=== PATIENT | female | born 1945 | race Asian ===

== ENCOUNTER 2016-10-22 10:58 | Inpatient (IN) | payer OTHER ==
[~2016-10-22] VITALS: Ht 160 cm; Wt 87.2 kg
[2016-10-22 11:06] VITALS: BP 160/87; PULSE 92; RESP 16; TEMP 97.8; O2SAT 97
[2016-10-22] MEDS ORDERED: LEVO5TAB13 PO (11:19)
[2016-10-22] MEDS ORDERED: LISI-600 PO (11:19)
[2016-10-22] MEDS ORDERED: OLAN5TAB26 PO (11:19)
[2016-10-22] MEDS ORDERED: GLIP-201 PO (11:19)
[2016-10-22] MEDS ORDERED: LORA-258 PO (11:19)
[2016-10-22] MEDS ORDERED: DIVA250T34 PO (11:19)
--- NOTE | 2016-10-22 11:21 | NUR ---
Patient to ER bed 6 to gown for evaluation. Side rails up. Report given to Adriana FAITH.
--- NOTE | 2016-10-22 11:30 | NUR ---
PT STATES MULTI FALLS AND FEELS GENERALLY WEAK. DENIES ANY PAIN OR DISCOMFORT. PT SLIGHTLY PALE
[2016-10-22] MEDS ORDERED: NACL 0.9% 1,000 ML IV SCH (11:57)
--- NOTE | 2016-10-22 12:05 | NUR ---
RESTING QUIELTY IN BED, DENIES ANY PAIN OR CHANGES IN STATUS
[2016-10-22 12:28] LABS: ANION GAP 7 (5-15); CALCIUM 9.1 mg/dL (8.4-11.0); CHLORIDE 104 mmol/L (98-107); CREATININE 0.96 mg/dL (0.55-1.30); GLUCOSE 195 mg/dL (70-99); POTASSIUM 4.2 mmol/L (3.5-5.1); SODIUM SERUM 138 mmol/L (136-145); UREA NITROGEN, BLOOD 15 mg/dL (8-21)
[2016-10-22 12:31] LABS: BASOPHILS % (AUTO) 0.4 % (0.0-2.0); EOSINOPHILS % (AUTO) 0.2 % (0.0-4.0); HEMATOCRIT 38.2 % (36-48); HEMOGLOBIN 13.3 g/dL (12.0-16.0); LYMPHOCYTES # (AUTO) 1.7 K/uL (1.0-5.5); LYMPHOCYTES % (AUTO) 19.9 % (20.5-51.5); MEAN CORPUSCULAR HEMOGLOBIN 32 pg (27-31); MEAN CORPUSCULAR HGB CONC 35 % (32-36); MEAN CORPUSCULAR VOLUME 91 fL (79.0-98.0); MONOCYTES # (AUTO) 0.7 K/uL (0.0-1.0); MONOCYTES % (AUTO) 7.9 % (1.7-9.3); NEUTROPHILS % (AUTO) 71.6 % (40.0-70.0); PLATELET COUNT (AUTO) 155 K/uL (130-430); RED BLOOD CELL COUNT(AUTO) 4.19 MIL/uL (4.2-6.2); RED CELL DISTRIBUTION WIDTH 13.3 % (9.0-15.0); WHITE BLOOD COUNT (AUTO) 8.4 K/uL (4.8-10.8)
[2016-10-22 12:33] LABS: ALANINE AMINOTRANSFERASE 21 U/L (12-78); ALBUMIN 3.6 g/dL (3.4-4.8); ASPARTATE AMINOTRANSFERASE 12 U/L (10-37); TOTAL BILIRUBIN 0.3 mg/dL (0.0-1.0); TOTAL PROTEIN, SERUM 7.3 g/dL (6.4-8.3)
[2016-10-22 12:34] LABS: BILIRUBIN,URINE NEGATIVE (NEGATIVE); BLOOD, URINE NEGATIVE (NEGATIVE); CLARITY/URINE CLEAR (CLEAR); COLOR,URINE YELLOW (YELLOW); GLUCOSE,URINE 2+ (NEGATIVE); KETONES,URINE 1+ (NEGATIVE); LEUKOCYTE ESTERASE ,URINE NEGATIVE (NEGATIVE); NITRITE, URINE NEGATIVE (NEGATIVE); PROTEIN URINE NEGATIVE (NEGATIVE)
[2016-10-22 12:41] LABS: BACTERIA,URINE RARE /HPF (None Seen); RBC,URINE 0-3 /HPF (0-3); WBC,URINE 0-3 /HPF (0-3)
[2016-10-22 12:41] LABS: INR 0.9 (0.8-1.2); PROTHROMBIN TIME 10.1 SECS (9.5-12.5)
--- NOTE | 2016-10-22 12:56 | NUR ---
RESTING QUIELTY. NO CHANGES. AWAITING FUTHER ORDERS
[2016-10-22] MEDS ORDERED: cefTRIAXone 1 GM IVPB PREMIX 50 ML IV ONE (13:30)
--- NOTE | 2016-10-22 14:35 | NUR ---
Patient will be admitted to [facility]. Admitted to TELE unit. Will go to room 103-B. Belongings list completed. Summary report printed. Report will be given at bedside.
--- NOTE | 2016-10-22 15:11 | NUR ---
ADMIT NOTE Received pt from ER to the floor with a diagnosis of s/p fall. Admission process initiated. patient oriented to pain management, safety and call light-teach back done.
--- NOTE | 2016-10-22 16:00 | NUR ---
RN Rounds Patient was received from ER, was assessed and the bed was made for her, her IVF bolus still running, will call the doctor for order and finish her admission, patient denies pain or discomfort
--- NOTE | 2016-10-22 17:28 | NUR ---
CONSULTATION CALLED REASON FOR CONSULT: S/P FALLS WHO WAS NOTIFIED: RUBI CONSULTING DR: LUCA LUNA SPEED OPERATOR NUMBER: [phone]
--- NOTE | 2016-10-22 18:00 | NUR ---
RN Closing note Patient lie in bed, she ate her dinner, patient is trying to remove her close, but she is oriented and cooperative. frequent rounds on the patient to ensure her safety, bed alarm is on, pharmacy was called regarding her IVF from the pharmacy. patient still denies pain and will follow up
[2016-10-22 20:00] VITALS: BP 132/78; PULSE 80; RESP 19; TEMP 98.3; O2SAT 97
--- NOTE | 2016-10-22 20:00 | NUR ---
Initial PM Note Pt was received lying in bed fully awake, alert and oriented x3. No c/o pain or discomfort. Speech is clear and pt is able to make her needs known. VSS. Pt is afebrile. linotyper is showing SR. Fall precautions are in place. Pt was instructed to call for assistance as needed and pt verbalized understanding. Call light is with pt and bed alarm is on. Three side rails are up. Bed is in the lowest and locked positions. IVF is infusing well in Rt wrist. Will continue to monitor pt.
[2016-10-22] MEDS ORDERED: NON-FORMULARY MEDICATION (Levocetirizine Dihydrochloride 1 TAB) PO SCH (21:00)
--- NOTE | 2016-10-22 22:00 | NUR ---
Rounds Pt is resting comfortably in bed. Skin is warm and dry to touch. No signs or symptoms of hypoglycemia or hyperglycemia noted. Call light is with pt and bed alarm is on. IVF is infusing well in Rt wrist.
[2016-10-22] MEDS: OLANZapine 5 MG TABLET PO SCH (22:04)
[2016-10-22] MEDS: DIVALPROEX SODIUM 250 MG TABLET(DEPAKOTE) PO SCH (22:05)
[2016-10-22] MEDS: LORazepam 1 MG TABLET PO SCH (22:05)
[2016-10-22] MEDS: POTASSIUM CHLORIDE 10 MEQ in NACL 0.9% 1,000 ML IV SCH (22:09)
[2016-10-22 23:27] VITALS: BP 146/87; PULSE 78; RESP 18; TEMP 99.4; O2SAT 93
--- NOTE | 2016-10-23 | NUR ---
Rounds Pt is sleeping without any distress noted. Call light is with pt and bed alarm is on.
--- NOTE | 2016-10-23 02:00 | NUR ---
Rounds Pt is sleeping comfortably in bed. Call light is with pt and bed alarm is on.
[2016-10-23 03:52] VITALS: BP 150/88; PULSE 78; RESP 18; TEMP 98.4; O2SAT 93
--- NOTE | 2016-10-23 04:00 | NUR ---
Rounds Pt is sleeping without any distress noted. IVF is infusing well.
[2016-10-23] MEDS: POTASSIUM CHLORIDE 10 MEQ in NACL 0.9% 1,000 ML IV SCH ×3 (05:24→23:30)
--- NOTE | 2016-10-23 06:36 | NUR ---
Closing Note Pt is awake and resting comfortably in bed. No acute distress noted. IVF is infusing well and call light is with pt. All pt's needs were attended to. No fall or injury noted this shift. Accucheck 159 this AM and no Insulin coverage needed. Skin remains warm and dry to touch. Will endorse to day shift nurse.
--- NOTE | 2016-10-23 07:30 | NUR ---
AM ROUNDS RECEIVED PT UP IN BED. AWAKE, ALERT, ORIENTED X3. BREATHING IS EVEN AND UNLABORED ON RA. NO ACUTE DISTRESS. FULL ASSESSMENT COMPLETED. VSS. RD OF CALL LIGHT NOTED. ENCOURAGED PT TO CALL WITH ANY NEEDS.
[2016-10-23 07:38] LABS: ANION GAP 6 (5-15); BASOPHILS % (AUTO) 0.3 % (0.0-2.0); CALCIUM 8.9 mg/dL (8.4-11.0); CHLORIDE 105 mmol/L (98-107); CREATININE 0.74 mg/dL (0.55-1.30); EOSINOPHILS % (AUTO) 0.2 % (0.0-4.0); GLUCOSE 183 mg/dL (70-99); HEMATOCRIT 36.8 % (36-48); HEMOGLOBIN 12.6 g/dL (12.0-16.0); LYMPHOCYTES # (AUTO) 1.3 K/uL (1.0-5.5); LYMPHOCYTES % (AUTO) 20.4 % (20.5-51.5); MEAN CORPUSCULAR HEMOGLOBIN 32 pg (27-31); MEAN CORPUSCULAR HGB CONC 34 % (32-36); MEAN CORPUSCULAR VOLUME 93 fL (79.0-98.0); MONOCYTES # (AUTO) 0.5 K/uL (0.0-1.0); MONOCYTES % (AUTO) 8.2 % (1.7-9.3); NEUTROPHILS # (AUTO) 4.5 K/uL (1.8-7.7); NEUTROPHILS % (AUTO) 70.9 % (40.0-70.0); PLATELET COUNT (AUTO) 133 K/uL (130-430); POTASSIUM 3.8 mmol/L (3.5-5.1); RED BLOOD CELL COUNT(AUTO) 3.98 MIL/uL (4.2-6.2); RED CELL DISTRIBUTION WIDTH 13.2 % (9.0-15.0); SODIUM SERUM 137 mmol/L (136-145); UREA NITROGEN, BLOOD 10 mg/dL (8-21); WHITE BLOOD COUNT (AUTO) 6.3 K/uL (4.8-10.8)
[2016-10-23 08:00] VITALS: BP 144/78; PULSE 66; RESP 16; TEMP 98.1; O2SAT 98
[2016-10-23] MEDS: glipiZIDE XL 5 MG TAB ( GLUCOTROL XL) PO SCH (08:52)
--- NOTE | 2016-10-23 08:52 | NUR ---
Nutrition Update Manuel Scale 18 noted. Pt admitted for fall. Diet: regular BMI: 34 kg/m2 RD to follow per nutrition care standards.
[2016-10-23] MEDS: LISINOPRIL 20 MG TABLET PO SCH (08:53)
[2016-10-23] MEDS: LORATADINE 10 MG TABLET PO SCH (08:53)
[2016-10-23] MEDS: DIVALPROEX SODIUM 250 MG TABLET(DEPAKOTE) PO SCH ×2 (08:53→22:05)
[2016-10-23 11:23] VITALS: BP 147/81; PULSE 81; RESP 19; TEMP 98.8; O2SAT 94
[2016-10-23 15:54] VITALS: BP 147/87; PULSE 94; RESP 19; TEMP 99.1; O2SAT 93
--- NOTE | 2016-10-23 16:00 | NUR ---
Discharge planning Called and spoke with PAIGE Grady @ [facility], , she is requesting Peer to Peer review with Dr Whiting and her Dr Sawant to discuss dc plan or possible transfer in network. I forwarded Dr Sawant's phone # [phone] Whiting.
[2016-10-23] MEDS: ACETAMINOPHEN 325 MG TABLET PO PRN (17:38)
--- NOTE | 2016-10-23 18:53 | NUR ---
CLOSING NOTE PT RESTING IN BED. ALL NEEDS MET.
--- NOTE | 2016-10-23 19:24 | NUR ---
Initial PM Note Pt was received lying in bed fully awake, alert and oriented x3. No c/o pain or discomfort at this time. Speech is clear and pt is able to make her needs known. Skin is warm and dry to touch. No signs or symptoms of hypoglycemia or hyperglycemia noted. manager monitoring is showing SR. Fall precautions are in place. Pt was instructed to call for assistance as needed and pt verbalized understanding. Call light is with pt and bed alarm is on. Three side rails are up. Bed is in the lowest and locked positions. IVF is infusing well in Rt wrist. Will continue to monitor pt.
[2016-10-23 19:30] VITALS: BP 135/71; PULSE 84; RESP 18; TEMP 97.6; O2SAT 94
--- NOTE | 2016-10-23 20:45 | NUR ---
Dr. Johanne Whiting here to make rounds. Informed him we will f/u on Neurology consult .
--- NOTE | 2016-10-23 21:00 | NUR ---
CONSULTATION PAGED REASON FOR CONSULTATION:S/P FALL WAS CONSULT CALLED?Y PERSON WHO WAS NOTIFIED:JUAN CARLOS CONSULTING PHYSICIAN:BENTLEY WILLINGHAM POTATO CHIP PROCESSING SUPERVISOR SPECIALTY:NEURO POTATO CHIP PROCESSING SUPERVISOR PHONE NUMBER:[phone]
[2016-10-23] MEDS: LORazepam 1 MG TABLET PO SCH (22:05)
[2016-10-23] MEDS: OLANZapine 5 MG TABLET PO SCH (22:05)
[2016-10-23] MEDS: INSULIN REGULAR, HUMAN 100 UNITS/ML, 10 ML VIAL (novoLIN R) SUBCUT PRN (22:08)
--- NOTE | 2016-10-23 22:08 | NUR ---
Blood Sugar Accucheck 221 and 2 units Regular Insulin given SQ. Skin remains warm and dry to touch. Pt declined HS snacks.
[2016-10-23 23:43] VITALS: BP 149/85; PULSE 86; RESP 18; TEMP 98.8; O2SAT 95
--- NOTE | 2016-10-24 | NUR ---
Rounds Pt is sleeping without any acute distress noted. IVF is infusing well and fall precautions are in place.
--- NOTE | 2016-10-24 02:00 | NUR ---
Rounds Pt is sleeping without any distress noted. IVF is infusing well. Call light is with pt and bed alarm is on.
--- NOTE | 2016-10-24 04:00 | NUR ---
Rounds Pt is sleeping comfortably in bed without any acute distress noted. Fall precautions are in place.
[2016-10-24 05:14] VITALS: BP 140/84; PULSE 83; RESP 20; TEMP 98.2; O2SAT 94
--- NOTE | 2016-10-24 05:30 | NUR ---
Rounds Pt is resting quietly in bed. No c/o pain or discomfort.
--- NOTE | 2016-10-24 06:52 | NUR ---
Closing Note Pt is awake and resting comfortably in bed. No acute distress noted. IVF is infusing well and call light is with pt. All pt's needs were attended to. No fall or injury noted this shift. Accucheck 164 this AM and no Insulin coverage needed. Skin remains warm and dry to touch. Will endorse to day shift nurse.
--- NOTE | 2016-10-24 07:20 | NUR ---
INITIAL NOTE RECEIVED PATIENT RESTING IN BED FROM CLOTH SECONDS SORTER NURSE, PATIENT IS ALERT AND ORIENTED X 3, PATIENT DOES NOT COMPLAIN OF ANY PAIN OR DISCOMFORT AT THIS TIME, ASSESSMENT COMPLETE, PATIENT HAS IV IN RIGHT WRIST WITH IV FLUIDS RUNNING, NO SIGNS OF INFILTRATION NOTED, EDUCATED PATIENT ON USE OF CALL FABIAN, PATIENT VERBALIZED UNDERSTANDING, CALL FABIAN LEFT NEXT TO PATIENT'S HAND, BED IN LOWEST POSITION, BED ALARM ON, TWO SIDE RAILS UP FOR PATIENT'S SAFETY, WILL CONTINUE TO MONITOR PATIENT.
[2016-10-24 07:27] LABS: BASOPHILS % (AUTO) 0.4 % (0.0-2.0); EOSINOPHILS % (AUTO) 0.5 % (0.0-4.0); HEMATOCRIT 36.6 % (36-48); HEMOGLOBIN 12.5 g/dL (12.0-16.0); LYMPHOCYTES # (AUTO) 1.9 K/uL (1.0-5.5); LYMPHOCYTES % (AUTO) 28.1 % (20.5-51.5); MEAN CORPUSCULAR HEMOGLOBIN 31 pg (27-31); MEAN CORPUSCULAR HGB CONC 34 % (32-36); MEAN CORPUSCULAR VOLUME 92 fL (79.0-98.0); MONOCYTES # (AUTO) 0.6 K/uL (0.0-1.0); MONOCYTES % (AUTO) 8.9 % (1.7-9.3); NEUTROPHILS # (AUTO) 4.2 K/uL (1.8-7.7); NEUTROPHILS % (AUTO) 62.1 % (40.0-70.0); PLATELET COUNT (AUTO) 136 K/uL (130-430); RED BLOOD CELL COUNT(AUTO) 3.99 MIL/uL (4.2-6.2); RED CELL DISTRIBUTION WIDTH 13.2 % (9.0-15.0); WHITE BLOOD COUNT (AUTO) 6.7 K/uL (4.8-10.8)
[2016-10-24 08:03] LABS: ANION GAP 6 (5-15); CALCIUM 8.8 mg/dL (8.4-11.0); CHLORIDE 108 mmol/L (98-107); CREATININE 0.77 mg/dL (0.55-1.30); GLUCOSE 189 mg/dL (70-99); POTASSIUM 4.3 mmol/L (3.5-5.1); SODIUM SERUM 138 mmol/L (136-145); UREA NITROGEN, BLOOD 11 mg/dL (8-21); VALPROIC ACID 55 ug/mL (50-100)
[2016-10-24 08:10] VITALS: BP 154/95; PULSE 66; RESP 19; TEMP 98.6; O2SAT 93
[2016-10-24] MEDS: DIVALPROEX SODIUM 250 MG TABLET(DEPAKOTE) PO SCH (08:40)
[2016-10-24] MEDS: LORATADINE 10 MG TABLET PO SCH (08:40)
[2016-10-24] MEDS: glipiZIDE XL 5 MG TAB ( GLUCOTROL XL) PO SCH (08:40)
[2016-10-24] MEDS: LISINOPRIL 20 MG TABLET PO SCH (08:40)
[2016-10-24] MEDS: ACETAMINOPHEN 325 MG TABLET PO PRN ×2 (08:44→17:27)
--- NOTE | 2016-10-24 08:45 | NUR ---
MEDICATIONS PATIENT RECEIVED MORNING MEDICATIONS, EDUCATED PATIENT ON POTENTIAL SIDE EFFECTS OF MEDICATIONS, PATIENT NODDED HEAD FOR UNDERSTANDING, NO OTHER NEEDS AT THIS TIME, WILL CONTINUE TO MONITOR PATIENT. FALL PRECAUTIONS IN PLACE.
--- NOTE | 2016-10-24 11:00 | NUR ---
RN ROUNDS PATIENT IS RESTING IN BED, NO COMPLAINTS OF PAIN, NO COMPLAINTS OF DISCOMFORT, NO OTHER NEEDS AT THIS TIME, WILL CONTINUE TO MONITOR PATIENT, FALL PRECAUTIONS IN PLACE.
[2016-10-24] MEDS ORDERED: IOHEXOL 100 ML IV ONE (12:25)
--- NOTE | 2016-10-24 12:45 | NUR ---
PATIENT IS OFF OF UNIT
[2016-10-24 13:00] VITALS: BP 137/80; PULSE 84; RESP 18; TEMP 98.7; O2SAT 94
--- NOTE | 2016-10-24 13:10 | NUR ---
PATIENT IS BACK ON UNIT/RN ROUNDS PATIENT IS BACK ON UNIT, PATIENT WAS GIVEN INSULIN 2 UNITS, INSULIN WAS GIVEN LATE BECAUSE PATIENT WAS NPO FOR TEST, PATIENT IS CURRENTLY SITTING UP IN BED EATING LUNCH, INSTRUCTED PATIENT TO USE CALL LIGHT IF ASSISTANCE IS NEEDED, PATIENT VERBALIZED UNDERSTANDING, NO OTHER NEEDS AT THIS TIME, FALL PRECAUTIONS IN PLACE, WILL CONTINUE TO MONITOR PATIENT.
[2016-10-24] MEDS: POTASSIUM CHLORIDE 10 MEQ in NACL 0.9% 1,000 ML IV SCH (13:26)
[2016-10-24] MEDS: INSULIN REGULAR, HUMAN 100 UNITS/ML, 10 ML VIAL (novoLIN R) SUBCUT PRN (13:29)
--- NOTE | 2016-10-24 14:30 | NUR ---
RN ROUNDS PATIENT IS RESTING IN BED WITH EYES CLOSED, NO SIGNS OF DISTRESS, BREATHING IS EVEN AND UNLABORED, NO OTHER NEEDS AT THIS TIME, LEFT CALL FABIAN NEXT TO PATIENT'S HAND, FALL PRECAUTIONS IN PLACE, WILL CONTINUE TO MONITOR.
--- NOTE | 2016-10-24 14:49 | NUR ---
CALLED ATTENDING MD DR FOY, RE: CT HEAD RESULTS. SPOKE TO NARDA
--- NOTE | 2016-10-24 14:54 | NUR ---
CALLED GENERAL SURGEON DR MONTOYA RE: CT HEAD RESULTS. SPOKE TO TRISH
--- NOTE | 2016-10-24 15:08 | NUR ---
CALLED THE NEUROLOGIST DR Jonathan LUNA RE: RESULTS OF THE CT SCAN HEAD. SPOKE TO MARY ELLEN
--- NOTE | 2016-10-24 16:00 | NUR ---
DC PLANNING: Shaan Lam cm for Ysabel at [facility] will arrange HH and FWW to be delivered tomorrow at [facility] and transportation via w/c . Shaan Ortez at [facility] will accept the pt. back today. Dr. Whiting spoke with son, Luca via phone of the final discharge plan as indicated . Son aware that the pt. will be dc back to [facility] today. Helder FAITH made aware that [facility] will call her when transportation is set up.
--- NOTE | 2016-10-24 16:31 | NUR ---
GOT A CALL FROM [facility]. PT WILL BE GOING BACK TO [facility] WITH [facility] PICKING UP THE PT AT 1700. ROOM AT [facility] IS 519. SPOKE TO CLARIBEL.
--- NOTE | 2016-10-24 16:41 | NUR ---
RN ROUNDS PATIENT WAS ABLE TO TALK TO SON ON PHONE, PATIENT STATES SHE IS IN NO PAIN OR DOES NOT HAVE ANY DISCOMFORT, NO OTHER NEEDS AT THIS TIME, WILL CONTINUE TO MONITOR PATIENT
[2016-10-24 16:49] VITALS: BP 138/85; PULSE 81; RESP 17; TEMP 99.4; O2SAT 94
--- NOTE | 2016-10-24 17:06 | NUR ---
PHYSICAL THERAPY CO-SIGN The Physical Therapy Progress Notes documented by Sales Administration Specialist have been reviewed. Reviewed/Co-Signed by: Alem Julien PT Documentation Done by: HERACLIO NOVA FINE JEWELRY SALES ASSOCIATE Addendum: 10/25/16 at 0839 by Alem Julien PT Amended: Links added.
[2016-10-24 17:07] VITALS: BP 135/85; PULSE 81; RESP 17; TEMP 98.9; O2SAT 94
--- NOTE | 2016-10-24 17:30 | NUR ---
D/C Patient Patient given medication reconciliation form and D/C instructions. Exit Care provided. Patient verbalized understanding. MD discussed with patient the results and treatment provided. Ambulatory with steady gait for discharge to home. Patient in stable condition, ID band removed. IV catheter removed, intact and dressing applied, no active bleeding.Patient educated on pain management. All belongings sent with patient.
[2016-10-25] MEDS ORDERED: METF-305 PO (23:25)
[2016-10-25] MEDS ORDERED: ACET325T53 PO (23:33)
--- NOTE | 2016-10-29 11:24 | NUR ---
Discharge Follow Up Phone Call CASINO FLOOR WALKER phoned [facility], , where patient resides. [employer] W[employer]ER spoke with patient's caregiver. Patient fell again after returning to [facility] and was transferred to a SNF for a short time. Patient did receive her FWW. They have no questions or concerns at this time.
== END 2016-10-24 17:35 | DRG 74 ==
LOC: SED 10:58 → STU 14:01
PROVIDERS: ADMIT Internal Medicine; ATTEND Internal Medicine
DX: G90.8 Other disorders of autonomic nervous system (principal); E87.2 Acidosis; E11.40 Type 2 diabetes mellitus with diabetic neuropathy, unspecified; I10 Essential (primary) hypertension; F03.90 Unspecified dementia, unspecified severity, without behavioral disturbance, psychotic disturbance, mood disturbance, and anxiety; F31.9 Bipolar disorder, unspecified; I67.1 Cerebral aneurysm, nonruptured; M19.90 Unspecified osteoarthritis, unspecified site
CPT/HCPCS: 36415; 70450-TC; 70496; 71010; 72125-TC; 80048; 80053; 80164-TC; 81000-TC; 82962; 83605; 84484; 85025; 85610-TC; 85730-TC; 87040-TC; 93005; 93880; 97110-GP; 97116-GP; 97530-GP; 99291; J0696; J1815; J3480; J7030; Q9967

== ENCOUNTER 2016-10-25 18:21 | Emergency (ER) | payer OTHER ==
[~2016-10-25] VITALS: Ht 167.6 cm; Wt 104.3 kg
[2016-10-25 18:21] VITALS: BP_SYST 159
[~2016-10-25 18:21] MED LIST: DIVA250T34 PO; GLIP-201 PO; LEVO5TAB13 PO; LISI-600 PO; LORA-258 PO; OLAN5TAB26 PO
--- NOTE | 2016-10-25 18:21 | NUR ---
Placed in room 02. Placed on supervisor refractory products, blood pressure machine and pulse oximeter. To gown for exam. Side rails up. Report given to MARCELL Palencia. NAJMA JOSHI from [facility]
--- NOTE | 2016-10-25 18:29 | NUR ---
received Pt in bed 2. Pt awake, alert, orientated x3 to self, , and situation. Slow speech noted. Ambulated stated slow speech was Pt's normal. Pt c/o 4/10 pain. Pt stated she fell down. Unable to remember what she was doing prior to fall. Right inflammation and abrasion noted on forehead. Pt able to follow commands. Perrla noted. Facial is symmetrical. No facial drooping noted. Pt able to raise BLE and BUE equally. muscle streght 4/10
--- NOTE | 2016-10-25 18:30 | NUR ---
Dr. Matson at the bedside evaluating Pt. Currently awaiting new orders.
--- NOTE | 2016-10-25 18:55 | NUR ---
radiology at the bedside performing xray.
[2016-10-25 18:57] LABS: BASOPHILS % (AUTO) 0.4 % (0.0-2.0); EOSINOPHILS % (AUTO) 0.6 % (0.0-4.0); HEMATOCRIT 41.8 % (36-48); HEMOGLOBIN 13.9 g/dL (12.0-16.0); LYMPHOCYTES # (AUTO) 1.4 K/uL (1.0-5.5); LYMPHOCYTES % (AUTO) 17.3 % (20.5-51.5); MEAN CORPUSCULAR HEMOGLOBIN 31 pg (27-31); MEAN CORPUSCULAR HGB CONC 33 % (32-36); MEAN CORPUSCULAR VOLUME 93 fL (79.0-98.0); MONOCYTES # (AUTO) 0.6 K/uL (0.0-1.0); MONOCYTES % (AUTO) 8.1 % (1.7-9.3); NEUTROPHILS # (AUTO) 5.8 K/uL (1.8-7.7); NEUTROPHILS % (AUTO) 73.6 % (40.0-70.0); PLATELET COUNT (AUTO) 204 K/uL (130-430); RED BLOOD CELL COUNT(AUTO) 4.48 MIL/uL (4.2-6.2); RED CELL DISTRIBUTION WIDTH 13.4 % (9.0-15.0); WHITE BLOOD COUNT (AUTO) 7.8 K/uL (4.8-10.8)
[2016-10-25 19:01] LABS: ANION GAP 9 (5-15); CALCIUM 9.2 mg/dL (8.4-11.0); CHLORIDE 104 mmol/L (98-107); CREATININE 1.03 mg/dL (0.55-1.30); GLUCOSE 288 mg/dL (70-99); POTASSIUM 4.6 mmol/L (3.5-5.1); SODIUM SERUM 138 mmol/L (136-145); UREA NITROGEN, BLOOD 24 mg/dL (8-21)
[2016-10-25 19:07] LABS: INR 0.9 (0.8-1.2); PROTHROMBIN TIME 9.8 SECS (9.5-12.5)
--- NOTE | 2016-10-25 19:15 | NUR ---
Pt transported to radiology via gurney for xray. Will endorse all care to My RN.
[2016-10-25 19:17] LABS: ALANINE AMINOTRANSFERASE 17 U/L (12-78); ALBUMIN 3.3 g/dL (3.4-4.8); ASPARTATE AMINOTRANSFERASE 13 U/L (10-37); FREE T4 (FREE THYROXINE) 0.6 ng/dL (0.6-1.6); TOTAL BILIRUBIN 0.3 mg/dL (0.0-1.0); TOTAL PROTEIN, SERUM 7.6 g/dL (6.4-8.3)
[2016-10-25 19:27] LABS: ALCOHOL, BLOOD < 3 mg/dL (<10)
[2016-10-25 20:03] LABS: BILIRUBIN,URINE NEGATIVE (NEGATIVE); CLARITY/URINE CLEAR (CLEAR); COLOR,URINE YELLOW (YELLOW); GLUCOSE,URINE 3+ (NEGATIVE); KETONES,URINE 1+ (NEGATIVE); LEUKOCYTE ESTERASE ,URINE NEGATIVE (NEGATIVE); NITRITE, URINE NEGATIVE (NEGATIVE); PH,URINE 5.5 (5.0-8.0); PROTEIN URINE 1+ (NEGATIVE); UROBILINOGEN,URINE 0.2 (0.2-1.0)
[2016-10-25 20:14] LABS: BLOOD, URINE TRACE (NEGATIVE)
[2016-10-25 20:15] LABS: BARBITURATE, URINE NEGATIVE (NEG <=200); BENZODIAZEPINE, URINE POSITIVE (NEG <=150); CANNABINOID, URINE NEGATIVE (NEG <=50); COCAINE, URINE NEGATIVE (NEG <=150); METHAMPHETAMINES SCREEN,URINE NEGATIVE (NEG <=500); OPIATE, URINE NEGATIVE (NEG <=100); PHENCYCLIDINE SCREEN,URINE NEGATIVE (NEG <=25); UR TRICYCLIC ANTIDEPRESSANTS NEGATIVE (NEG <=300); URINE AMPHETAMINE NEGATIVE (NEG <=500); URINE METHADONE NEGATIVE (NEG <=200); URINE OXYCODONE SCREEN NEGATIVE (NEG <=100); URINE PROPOXYPHENE SCREEN NEGATIVE (NEG <=300)
[2016-10-25] MEDS ORDERED: NACL 0.9% 1,000 ML IV ONE ×2 (20:15→21:45)
[2016-10-25 20:17] LABS: BACTERIA,URINE FEW /HPF (None Seen); HYALINE CASTS, URINE 0-10 /LPF (None Seen); MUCUS,URINE 3+ /LPF (None Seen); RBC,URINE 0-3 /HPF (0-3); WBC,URINE 0-3 /HPF (0-3)
[2016-10-25] MEDS ORDERED: VANCOMYCIN HCL 1,000 MG in NS 250 ML IV ONE (22:00)
[2016-10-25] MEDS ORDERED: PIPERACILLIN/TAZO 3.375 GM in NS 50 ML IV ONE (22:00)
[2016-10-25] MEDS ORDERED: VANCOMYCIN HCL 1000 MG/VIAL IV ONE (22:10)
[2016-10-25] MEDS ORDERED: PIPERACILLIN/TAZOBACTAM 3.375 GM/VIAL (ZOSYN) IV ONE (22:10)
[2016-10-25] MEDS ORDERED: METF-305 PO (23:25)
[2016-10-25] MEDS ORDERED: ACET325T53 PO (23:33)
--- NOTE | 2016-10-26 01:00 | NUR ---
Pt sleepinng in bed comfortably, no signs of distress at this time. Vital signs stable
--- NOTE | 2016-10-26 02:30 | NUR ---
Madhavi mullins in ED - 10/26/16 at 0354 by SDNURMTN Called [facility] to report about the pt. Gave report to MARCELL Parkinson.
[2016-10-26 03:35] VITALS: BP_SYST 142
--- NOTE | 2016-10-26 03:35 | NUR ---
Patient to be transferred to [facility]. Is being transferred due to higher level of care. Receiving facility has accepting physician and available space. ER physician has signed transfer form. Patient or responsible alliance party has agreed to transfer and signed form. Patient belongings inventoried and will be sent with patient. Copy of nursing notes, lab reports, EKG, Physicians Orders and X-rays to be sent with patient. Report called to MARCELL Parkinson at receiving facility. Receiving physician is Dr Khanna. [facility] has been called for transfer. ETA is 45 mins.
== END 2016-10-26 03:35 | disposition short-term general hospital (02) ==
LOC: SED 18:21
DX: E11.9 Type 2 diabetes mellitus without complications (principal); S00.81XA Abrasion of other part of head, initial encounter; F41.9 Anxiety disorder, unspecified; F31.9 Bipolar disorder, unspecified; R55 Syncope and collapse; W19.XXXA Unspecified fall, initial encounter; Y93.01 Activity, walking, marching and hiking; Y92.091 Bathroom in other non-institutional residence as the place of occurrence of the external cause; Y99.8 Other external cause status
CPT/HCPCS: 36415; 70450; 71010; 72125; 74000; 80053; 80164; 80307; 81000; 82140; 82962; 83605; 83880; 84439; 84484; 85025; 85610; 87040; 93005; 96365; 96366; 96367; 99285; G0482; J2543; J3370; J7030; J7050

== ENCOUNTER 2017-08-03 08:40 | Emergency (ER) | payer OTHER ==
[~2017-08-03] VITALS: Ht 154.9 cm; Wt 68.0 kg
[2017-08-03 08:40] VITALS: BP_SYST 146
[~2017-08-03 08:40] MED LIST changes: +ACET325T53 PO; +METF-305 PO
--- NOTE | 2017-08-03 08:40 | NUR ---
Pt placed in bed 4, report endorsed to Izabela FAITH
--- NOTE | 2017-08-03 08:41 | NUR ---
Pt stated that she had a mechanical fall 2 days ago at [facility]. Pt states that she has diffused pain throughout her back. Pt states that her pain is 10/10.
--- NOTE | 2017-08-03 08:45 | NUR ---
ER Dr. Duarte at bedside examining patient.
[2017-08-03] MEDS ORDERED: KETOROLAC TROMETHAMINE 30 MG VIAL IVP ONE (09:00)
[2017-08-03 09:12] LABS: BASOPHILS % (AUTO) 0.3 % (0.0-2.0); EOSINOPHILS % (AUTO) 0.5 % (0.0-4.0); HEMATOCRIT 37.8 % (36-48); HEMOGLOBIN 12.7 g/dL (12.0-16.0); LYMPHOCYTES # (AUTO) 1.2 K/uL (1.0-5.5); LYMPHOCYTES % (AUTO) 18.9 % (20.5-51.5); MEAN CORPUSCULAR HEMOGLOBIN 32 pg (27-31); MEAN CORPUSCULAR HGB CONC 34 % (32-36); MEAN CORPUSCULAR VOLUME 96 fL (79.0-98.0); MONOCYTES # (AUTO) 0.5 K/uL (0.0-1.0); MONOCYTES % (AUTO) 7.8 % (1.7-9.3); NEUTROPHILS # (AUTO) 4.7 K/uL (1.8-7.7); NEUTROPHILS % (AUTO) 72.5 % (40.0-70.0); PLATELET COUNT (AUTO) 131 K/uL (130-430); RED BLOOD CELL COUNT(AUTO) 3.95 MIL/uL (4.2-6.2); RED CELL DISTRIBUTION WIDTH 13.2 % (9.0-15.0); WHITE BLOOD COUNT (AUTO) 6.4 K/uL (4.8-10.8)
[2017-08-03 09:16] LABS: ANION GAP 11 (5-15); CALCIUM 9.2 mg/dL (8.4-11.0); CHLORIDE 99 mmol/L (98-107); CREATININE 1.01 mg/dL (0.55-1.30); GLUCOSE 198 mg/dL (70-99); POTASSIUM 4.1 mmol/L (3.5-5.1); SODIUM SERUM 137 mmol/L (136-145); UREA NITROGEN, BLOOD 25 mg/dL (8-21)
--- NOTE | 2017-08-03 09:19 | NUR ---
Pt endorsed to Ricky FAITH
[2017-08-03 09:22] LABS: ALANINE AMINOTRANSFERASE 20 U/L (12-78); ASPARTATE AMINOTRANSFERASE 22 U/L (10-37); TOTAL BILIRUBIN 0.6 mg/dL (0.0-1.0)
[2017-08-03 11:20] VITALS: BP_SYST 130
--- NOTE | 2017-08-03 11:20 | NUR ---
Patient given written and verbal discharge instructions and verbalizes understanding. ER MD discussed with patient the results and treatment provided. Patient in stable condition. ID arm band removed. Rx of Motrin given. Patient educated on pain management and to follow up with PMD within 2 to 3days. Pain Scale 5/10; improved and no further interventions required at this time; pt and MD agreeable to discharge home. Opportunity for questions provided and answered.
== END 2017-08-03 11:20 | disposition home or self-care (01) ==
LOC: SED 08:40
DX: M54.5 Low back pain (principal); F41.9 Anxiety disorder, unspecified; E11.9 Type 2 diabetes mellitus without complications; F31.9 Bipolar disorder, unspecified; Z79.899 Other long term (current) drug therapy
CPT/HCPCS: 36415; 72110; 80053; 85025; 96372; 99285; J1885

== ENCOUNTER 2020-06-18 10:03 | Inpatient (IN) | payer OTHER, SELFPAY ==
[~2020-06-18] VITALS: Ht 160 cm; Wt 69.9 kg
[~2020-06-18 10:03] MED LIST changes: -METF-305 PO; +METF-381 PO
[2020-06-18 10:05] VITALS: BP_SYST 145
--- NOTE | 2020-06-18 10:25 | NUR ---
Patient to ER bed H2 to gown for evaluation. Side rails up.
--- NOTE | 2020-06-18 10:30 | NUR ---
Pt brought by ACLS ,A&Ox3, pt presents to ER with neck pain, pt states she felt dizzy and fell from bed , pt was on the floor x 3 hours, no KO, pt c/o mild neck pain, skin pink and warm, cap refill <3, respirations even and unlabored.
--- NOTE | 2020-06-18 10:40 | NUR ---
Dr Altman evaluating patient at bedside
--- NOTE | 2020-06-18 10:50 | NUR ---
Pt off the unit to radiology
[2020-06-18 12:17] LABS: BASOPHILS % (AUTO) 0.4 % (0.0-2.0); EOSINOPHILS % (AUTO) 0.1 % (0.0-4.0); HEMATOCRIT 40.4 % (36-48); HEMOGLOBIN 13.7 g/dL (12.0-16.0); LYMPHOCYTES # (AUTO) 1.5 K/uL (1.0-5.5); LYMPHOCYTES % (AUTO) 37.8 % (20.5-51.5); MEAN CORPUSCULAR HEMOGLOBIN 33 pg (27-31); MEAN CORPUSCULAR HGB CONC 34 % (32-36); MEAN CORPUSCULAR VOLUME 96 fL (79.0-98.0); MONOCYTES # (AUTO) 0.5 K/uL (0.0-1.0); MONOCYTES % (AUTO) 11.8 % (1.7-9.3); NEUTROPHILS % (AUTO) 49.9 % (40.0-70.0); PLATELET COUNT (AUTO) 128 K/uL (130-430); RED CELL DISTRIBUTION WIDTH 14.1 % (9.0-15.0); WHITE BLOOD COUNT (AUTO) 3.9 K/uL (4.8-10.8)
[2020-06-18 12:29] LABS: INR 0.9 (0.8-1.2); PROTHROMBIN TIME 9.6 SECS (9.5-12.5)
[2020-06-18 12:48] LABS: ANION GAP 11 (5-15); CALCIUM 9.1 mg/dL (8.4-11.0); CHLORIDE 102 mmol/L (98-107); CREATININE 0.89 mg/dL (0.55-1.30); GLUCOSE 134 mg/dL (70-99); POTASSIUM 3.8 mmol/L (3.5-5.1); SODIUM SERUM 141 mmol/L (136-145); UREA NITROGEN, BLOOD 14 mg/dL (8-21)
[2020-06-18 13:03] LABS: ALANINE AMINOTRANSFERASE 17 U/L (12-78); ALBUMIN 3.3 g/dL (3.4-4.8); ASPARTATE AMINOTRANSFERASE 15 U/L (10-37); BILIRUBIN,DIRECT 0.1 mg/dL (0.0-0.3); LIPASE 102 U/L (73-393); TOTAL BILIRUBIN 0.3 mg/dL (0.0-1.0)
[2020-06-18 14:26] LABS: VALPROIC ACID 62 ug/mL (50-100)
[2020-06-18] MEDS: NACL 0.9% 1,000 ML IV SCH (16:08)
--- NOTE | 2020-06-18 16:09 | NUR ---
Pt unable to recall the name of her medicaitons
--- NOTE | 2020-06-18 17:09 | NUR ---
Pt moved to bed 07 due to positive covid test
--- NOTE | 2020-06-18 17:25 | NUR ---
Pt A&Ox3, VSS , respirations even and unlabored,cap refill<3
[2020-06-18 17:51] LABS: BILIRUBIN,URINE NEGATIVE (NEGATIVE); BLOOD, URINE NEGATIVE (NEGATIVE); CLARITY/URINE CLEAR (CLEAR); COLOR,URINE YELLOW (YELLOW); GLUCOSE,URINE NEGATIVE (NEGATIVE); KETONES,URINE NEGATIVE (NEGATIVE); LEUKOCYTE ESTERASE ,URINE NEGATIVE (NEGATIVE); NITRITE, URINE NEGATIVE (NEGATIVE); PH,URINE 6.5 (5.0-8.0); PROTEIN URINE NEGATIVE (NEGATIVE); UROBILINOGEN,URINE 0.2 (0.2-1.0)
--- NOTE | 2020-06-18 19:52 | NUR ---
ADMISSION NOTE Received patient from ER via gurney. Patient admitted with diagnosis of SYNCOPE. Patient is awake, alert, oriented X 3. Patient oriented to hospital room, call light, toileting, pain management and safety-teach back done. Patient informed that JAIME will be nurse and that their room number is 124B. Personal belongings checked and Belongings List documented. Call light within reach.
--- NOTE | 2020-06-18 20:00 | NUR ---
Patient will be admitted to care of Dr Schwartz . Admitted to tele unit. Will go to room 119B. Belongings list completed. Complete and up to date summary report printed. SBAR report to be given at bedside with opportunity for questions.
[2020-06-18] MEDS ORDERED: LISI-600 PO (20:14)
[2020-06-18] MEDS ORDERED: METO25TA3 PO (20:14)
[2020-06-18] MEDS ORDERED: DIVA250T PO (20:14)
[2020-06-18] MEDS ORDERED: DIBU56.7 TP (20:14)
[2020-06-18] MEDS ORDERED: LIP10 PO (20:14)
[2020-06-18] MEDS ORDERED: METF-510 PO (20:14)
[2020-06-18] MEDS ORDERED: ACET325T53 PO (20:14)
[2020-06-18] MEDS ORDERED: CRAN250C PO (20:14)
[2020-06-18] MEDS ORDERED: POLY15DR31 EACH EYE (20:14)
[2020-06-18] MEDS ORDERED: AMAN100C16 PO (20:14)
[2020-06-18] MEDS ORDERED: DIVA500T4 PO (20:14)
[2020-06-18] MEDS ORDERED: DOCU250C71 PO (20:14)
[2020-06-18] MEDS ORDERED: FAMO-132 PO (20:14)
--- NOTE | 2020-06-18 20:15 | NUR ---
Medication reconciliation completed with information provided by patient chart. Any prior medication reconciliation on file was reviewed and corrected.
[2020-06-18 20:25] VITALS: BP_SYST 144
[2020-06-18] MEDS ORDERED: DEXTROSE 50% JECT 50 ML DISP.SYRIN IVP PRN (20:30)
[2020-06-18] MEDS ORDERED: ACETAMINOPHEN 325 MG TABLET PO PRN (20:30)
--- NOTE | 2020-06-18 20:59 | NUR ---
Alexis Schwartz s/ashlie Mueller
[2020-06-18] MEDS ORDERED: DIVALPROEX SODIUM 500 MG TAB.SR.24H (DEPAKOTE ER) PO SCH (21:33)
[2020-06-18] MEDS: PEG 400/HYPROMELLOSE/GLYCERIN 15 ML DROPS EACH EYE SCH (22:00)
[2020-06-18] MEDS: METOPROLOL SUCCINATE 25 MG TAB.SR.24H (TOPROL XL) PO SCH (22:00)
[2020-06-18] MEDS: FAMOTIDINE 20 MG TABLET PO SCH (22:00)
[2020-06-18] MEDS ORDERED: DIVALPROEX SODIUM 250 MG TABLET(DEPAKOTE) PO ONE (22:18)
[2020-06-18] MEDS ORDERED: DIVALPROEX SODIUM 500 MG TABLET( DEPAKOTE) PO ONE (22:22)
[2020-06-18] MEDS: INSULIN REGULAR, HUMAN 100 UNITS/ML, 10 ML VIAL (humuLIN R) SUBCUT PRN (22:28)
[2020-06-18] MEDS ORDERED: DIVALPROEX SODIUM 250 MG TAB.SR.24H (DEPAKOTE ER) PO ONE (23:00)
--- NOTE | 2020-06-18 23:12 | NUR ---
SPOKE TO DR. FELICIANO REGARDING DOSAGE OF DEPAKOTE. NEW ORDER RECEIVED. WILL CARRY OUT.
[2020-06-19] VITALS: BP_SYST 145
[2020-06-19] MEDS ORDERED: DIVALPROEX SODIUM 250 MG TABLET(DEPAKOTE) PO ONE (00:09)
[2020-06-19] MEDS: DIVALPROEX SODIUM 250 MG TABLET(DEPAKOTE) PO SCH ×3 (00:13→21:00)
[2020-06-19] MEDS: NACL 0.9% 1,000 ML IV SCH ×2 (01:30→12:22)
--- NOTE | 2020-06-19 02:15 | NUR ---
Consultation Paged Reason for Consultation: Syncope Was consult called: Y Person who was notified: Lissa Consulting Physician: Dr. Hollis Ordering Order: Dr. Schwartz
--- NOTE | 2020-06-19 05:46 | NUR ---
Consultation Paged Reason for Consultation: Syncope and Brain Aneurysm Was consult called: Y Person who was notified: Dr. Hart through text message Consulting Physician: Dr. Hart Ordering Physician: Dr. Schwartz
--- NOTE | 2020-06-19 07:20 | NUR ---
OPENING NOTE RECEIVED SBAR FROM NIGHT RN, PATIENT IN BED, RESPIRATIONS EVEN, NON LABORED, BED IN LOW AND LOCKED POSITION CALL LIGHT WITHIN REACH
--- NOTE | 2020-06-19 07:35 | NUR ---
Nutrition Update Manuel Scale 15 noted. Pt admitted for Syncope Diet: [facility] BMI: 27.3 kg/m2 RD to follow per nutrition care standards.
[2020-06-19 08:00] VITALS: BP_SYST 160
[2020-06-19 08:39] LABS: ALANINE AMINOTRANSFERASE 17 U/L (12-78); ALBUMIN 2.9 g/dL (3.4-4.8); ANION GAP 8 (5-15); CALCIUM 8.5 mg/dL (8.4-11.0); CHLORIDE 107 mmol/L (98-107); CREATININE 0.81 mg/dL (0.55-1.30); GLUCOSE 104 mg/dL (70-99); POTASSIUM 3.8 mmol/L (3.5-5.1); SODIUM SERUM 144 mmol/L (136-145); TOTAL BILIRUBIN 0.2 mg/dL (0.0-1.0); UREA NITROGEN, BLOOD 13 mg/dL (8-21)
[2020-06-19 08:58] LABS: ASPARTATE AMINOTRANSFERASE 17 U/L (10-37)
[2020-06-19] MEDS ORDERED: DIVALPROEX SODIUM 250 MG TAB.SR.24H (DEPAKOTE ER) PO SCH (09:00)
[2020-06-19] MEDS: ATORVASTATIN 10 MG TABLET PO SCH (10:01)
[2020-06-19] MEDS: PEG 400/HYPROMELLOSE/GLYCERIN 15 ML DROPS EACH EYE SCH ×4 (10:01→21:00)
[2020-06-19] MEDS: CHOLECALCIFEROL (VITAMIN D3) 5,000 UNIT TABLET PO SCH (10:02)
[2020-06-19] MEDS: METOPROLOL SUCCINATE 25 MG TAB.SR.24H (TOPROL XL) PO SCH ×2 (10:02→21:00)
[2020-06-19 11:28] VITALS: BP_SYST 143
--- NOTE | 2020-06-19 12:00 | NUR ---
NURSE NOTE PATIENT IN BED, RESPIRATIONS EVEN, NON LABORED, BED IN LOW AND LOCKED POSITION, CALL LIGHT WITHIN REACH. PATIENT ON ROOM. IVFS RUNNING ORDERED. PATIENT DENIES ANY PAIN OR DISCOMFORT
[2020-06-19] MEDS: INSULIN REGULAR, HUMAN 100 UNITS/ML, 10 ML VIAL (humuLIN R) SUBCUT PRN (12:22)
[2020-06-19 12:25] LABS: BASOPHILS % (AUTO) 0.3 % (0.0-2.0); EOSINOPHILS % (AUTO) 0.2 % (0.0-4.0); HEMATOCRIT 38.9 % (36-48); HEMOGLOBIN 13.1 g/dL (12.0-16.0); LYMPHOCYTES # (AUTO) 1.3 K/uL (1.0-5.5); LYMPHOCYTES % (AUTO) 39.8 % (20.5-51.5); MEAN CORPUSCULAR HEMOGLOBIN 33 pg (27-31); MEAN CORPUSCULAR HGB CONC 34 % (32-36); MEAN CORPUSCULAR VOLUME 97 fL (79.0-98.0); MONOCYTES # (AUTO) 0.3 K/uL (0.0-1.0); MONOCYTES % (AUTO) 10.6 % (1.7-9.3); NEUTROPHILS # (AUTO) 1.6 K/uL (1.8-7.7); NEUTROPHILS % (AUTO) 49.1 % (40.0-70.0); PLATELET COUNT (AUTO) 117 K/uL (130-430); RED BLOOD CELL COUNT(AUTO) 4.02 MIL/uL (4.2-6.2); RED CELL DISTRIBUTION WIDTH 14.1 % (9.0-15.0); WHITE BLOOD COUNT (AUTO) 3.3 K/uL (4.8-10.8)
[2020-06-19 12:55] LABS: CHOLESTEROL 114 mg/dL (<200); HDL CHOLESTEROL 43 mg/dL (>55); LDL CHOLESTEROL 65 mg/dL (<100); TRIGLYCERIDES 80 mg/dL (30-150)
[2020-06-19 15:06] VITALS: BP_SYST 159
--- NOTE | 2020-06-19 17:03 | NUR ---
CONSULTATION PAGED REASON FOR CONSULTATION:LOW PLATELETS WAS CONSULT CALLED?:Y PERSON WHO WAS NOTIFIED:JAYLEN CONSULTING PHYSICIAN:GREYSON MEZA RECONCILEMENT CLERK SPECIALTY:ONCOLOGY/HEMATOLOGY RECONCILEMENT CLERK PHONE NUMBER:[phone] REQUESTING PHYSICIAN:ZAY LUCERO
--- NOTE | 2020-06-19 19:05 | NUR ---
CLOSING NOTE PROVIDED SBAR TO NIGHT RN, PATIENT IN BED, RESPIRATIONS EVEN, NON LABORED, BED IN LOW AND LOCKED POSITION, CALL LIGHT WITHIN REACH, IVF'S RUNNING ORDERED, ON ROOM AIR. ENDORSED CARE TO NIGHT RN
--- NOTE | 2020-06-19 19:10 | NUR ---
OPENING NOTES RECEIVED PATIENT RESTING IN BED, EYES CLOSED, NO SIGNS OF RESPIRATORY DISTRESS, ROOM AIR. IV SITE PATENT, DRESSING C/D/I. CALL LIGHT WITHIN REACH, BED ALARM ON, BED AT LOWEST POSITION. WILL CONTINUE TO MONITOR.
[2020-06-19 20:00] VITALS: BP_SYST 135
[2020-06-19] MEDS ORDERED: DIVALPROEX SODIUM 500 MG TAB.SR.24H (DEPAKOTE ER) PO SCH (21:00)
[2020-06-19] MEDS: FAMOTIDINE 20 MG TABLET PO SCH (21:00)
--- NOTE | 2020-06-19 21:04 | NUR ---
PAGED PAGED GREYSON MEZA AT [phone] SPOKE WITH KAMALJIT.
--- NOTE | 2020-06-19 21:38 | NUR ---
SPOKE TO DR. ROY FOR NPO PAST MIDNIGHT DIET ORDER FOR US ABD, NO NEW ORDERS RECEIVED, WILL KEEP PATIENT NPO AFTER MIDNIGHT AND FOLLOW POLICY PROCEDURE. WILL CONTINUE TO MONITOR.
--- NOTE | 2020-06-19 21:39 | NUR ---
PAGED PAGED JOVITA FAITH AT [phone] SPOKE WITH BRYNN.,
--- NOTE | 2020-06-19 22:40 | NUR ---
SPOKE TO DR. IBARRA, RELAYED COVID POSITIVE PCR RESULT. NO NEW ORDERS RECEIVED.
[2020-06-20 01:43] VITALS: BP_SYST 130
--- NOTE | 2020-06-20 07:06 | NUR ---
CLOSING NOTES PATIENT RESTING, NO SIGNS OF RESPIRATORY DISTRESS, ROOM AIR. IV SITE PATENT, DRESSING C/D/I. CALL LIGHT WITHIN REACH, BED ALARM ON, BED AT LOWEST POSITION. PATIENT HAS BEEN NPO PAST MIDNIGHT. ALL NEEDS MET THROUGHOUT SHIFT. COVID ISOLATION PRECAUTIONS MAINTAINED THROUGHOUT SHIFT. WILL ENDORSE CARE TO ONCOMING SHIFT.
--- NOTE | 2020-06-20 07:10 | NUR ---
opening note received sbar form night RN, patient in bed, respirations shallow, room air ivf's running as ordered. Bed in low and locked position, call light within reach,
[2020-06-20 08:00] VITALS: BP_SYST 131
[2020-06-20 08:42] LABS: BASOPHILS % (AUTO) 0.2 % (0.0-2.0); EOSINOPHILS % (AUTO) 0.3 % (0.0-4.0); HEMATOCRIT 34.9 % (36-48); HEMOGLOBIN 11.8 g/dL (12.0-16.0); LYMPHOCYTES # (AUTO) 1.2 K/uL (1.0-5.5); LYMPHOCYTES % (AUTO) 34.4 % (20.5-51.5); MEAN CORPUSCULAR HEMOGLOBIN 33 pg (27-31); MEAN CORPUSCULAR HGB CONC 34 % (32-36); MEAN CORPUSCULAR VOLUME 96 fL (79.0-98.0); MONOCYTES # (AUTO) 0.3 K/uL (0.0-1.0); NEUTROPHILS # (AUTO) 1.9 K/uL (1.8-7.7); NEUTROPHILS % (AUTO) 56.1 % (40.0-70.0); PLATELET COUNT (AUTO) 87 K/uL (130-430); RED BLOOD CELL COUNT(AUTO) 3.62 MIL/uL (4.2-6.2); RED CELL DISTRIBUTION WIDTH 13.9 % (9.0-15.0); WHITE BLOOD COUNT (AUTO) 3.5 K/uL (4.8-10.8)
[2020-06-20] MEDS ORDERED: ENOXAPARIN SODIUM 40 MG/0.4 ML SYRINGE SUBCUT SCH (09:00)
[2020-06-20] MEDS: PEG 400/HYPROMELLOSE/GLYCERIN 15 ML DROPS EACH EYE SCH ×4 (10:19→20:35)
[2020-06-20] MEDS: DOCUSATE SODIUM 250 MG CAPSULE PO SCH (10:19)
[2020-06-20] MEDS: DIVALPROEX SODIUM 250 MG TABLET(DEPAKOTE) PO SCH (10:19)
[2020-06-20] MEDS: ATORVASTATIN 10 MG TABLET PO SCH (10:19)
[2020-06-20] MEDS: CHOLECALCIFEROL (VITAMIN D3) 5,000 UNIT TABLET PO SCH (10:20)
[2020-06-20] MEDS: METOPROLOL SUCCINATE 25 MG TAB.SR.24H (TOPROL XL) PO SCH ×2 (10:20→20:35)
[2020-06-20 11:31] VITALS: BP_SYST 130
--- NOTE | 2020-06-20 12:00 | NUR ---
nurse note obtained vs, patient in bed, respirations even, non labored, bed in low and locked position call light within reach, bed alarm on, obtained vs, and bs, no insulin per sliding scale. patient denies any pain or discomfort
--- NOTE | 2020-06-20 12:57 | NUR ---
md rounds dr Morris bedside examining patient, OK to discharge patient when cleared by Efren
--- NOTE | 2020-06-20 15:28 | NUR ---
nurse note unable to flush iv, no signs of infiltration, no pain, removed IV catheter intact, no bleeding.
[2020-06-20 16:00] VITALS: BP_SYST 139
--- NOTE | 2020-06-20 19:07 | NUR ---
nurse note provided sbar to night RN, patient in bed respirations even, non labored, bed in low and locked position, call light within reach, bed alarm endorsed care to night RN
--- NOTE | 2020-06-20 19:30 | NUR ---
OPENING NOTES RECEIVED REPORT FROM DAY SHIFT RN. PT RESTING IN BED, ALERT & ORIENTED X3. BREATHING EVEN AND UNLABORED TO ROOM AIR. NO SIGNS OF RESPIRATORY DISTRESS NOTED. BED ALARM ON, LOCKED IN LOWEST POSITION. CALL LIGHT WITHIN REACH. SAFETY, FALL, AND ISOLATION PRECAUTIONS MAINTAINED. WILL CONTINUE TO MONITOR.
[2020-06-20 20:00] VITALS: BP_SYST 143
[2020-06-20] MEDS: FAMOTIDINE 20 MG TABLET PO SCH (20:35)
[2020-06-21] VITALS: BP_SYST 139
[2020-06-21 08:14] VITALS: BP_SYST 145
[2020-06-21] MEDS: METOPROLOL SUCCINATE 25 MG TAB.SR.24H (TOPROL XL) PO SCH (08:55)
[2020-06-21] MEDS: CHOLECALCIFEROL (VITAMIN D3) 5,000 UNIT TABLET PO SCH (08:55)
[2020-06-21] MEDS: ATORVASTATIN 10 MG TABLET PO SCH (08:58)
[2020-06-21] MEDS: DOCUSATE SODIUM 250 MG CAPSULE PO SCH (08:58)
--- NOTE | 2020-06-21 10:00 | NUR ---
Patient alert/oriented x3 , able to get out of bed to bedside commode with assist ,tolerates all po med, discharge order today ,son Don informed and contacted [facility] will picket labor union patient today after lunch.
[2020-06-21 10:26] VITALS: BP_SYST 140
[2020-06-21 11:05] VITALS: BP_SYST 137
--- NOTE | 2020-06-21 13:45 | NUR ---
DISCHARGE INSTRUCTION GIVEN TO [facility] VAMSHI WITH ALL THE INFORMATION
== END 2020-06-21 13:40 | DRG 314 ==
LOC: SED 10:03 → STU 15:22
PROVIDERS: ADMIT Internal Medicine; ATTEND Internal Medicine
DX: I95.9 Hypotension, unspecified (principal); U07.1 COVID-19; E11.9 Type 2 diabetes mellitus without complications; E78.5 Hyperlipidemia, unspecified; F41.9 Anxiety disorder, unspecified; M47.892 Other spondylosis, cervical region; D69.6 Thrombocytopenia, unspecified; F31.9 Bipolar disorder, unspecified; I10 Essential (primary) hypertension; W07.XXXA Fall from chair, initial encounter; Y93.89 Activity, other specified; Y92.89 Other specified places as the place of occurrence of the external cause; Y99.8 Other external cause status
CPT/HCPCS: 36415; 70450-TC; 71045; 72125-TC; 72170-TC; 73030; 76376; 76700-TC; 80048; 80053; 80061; 80076; 80164-TC; 81003; 82607; 82746; 82962; 83690-TC; 83735-TC; 83880; 84484; 85025; 85379; 85610-TC; 86038; 87081; 93005; 93306; 93880; 99285; G0378; J1650; J7030; U0003

== ENCOUNTER 2021-01-15 19:26 | Inpatient (IN) | payer OTHER, SELFPAY ==
[~2021-01-15] VITALS: Ht 160 cm; Wt 65.8 kg
[~2021-01-15 19:26] MED LIST changes: +AMAN100C16 PO; +CRAN250C PO; +DIBU56.7 TP; -DIVA250T34 PO; +DOCU250C71 PO; +FAMO-132 PO; -GLIP-201 PO; -LEVO5TAB13 PO; +LIP10 PO; -LISI-600 PO; -LORA-258 PO; -METF-381 PO; +METF-518 PO; +METO25TA3 PO; -OLAN5TAB26 PO; +POLY15DR31 EACH EYE
[2021-01-15 19:40] VITALS: BP_SYST 112
[2021-01-15 20:13] LABS: BASOPHILS % (AUTO) 0.5 % (0.0-2.0); EOSINOPHILS % (AUTO) 0.3 % (0.0-4.0); HEMATOCRIT 34.6 % (36-48); HEMOGLOBIN 11.8 g/dL (12.0-16.0); LYMPHOCYTES # (AUTO) 2.1 K/uL (1.0-5.5); LYMPHOCYTES % (AUTO) 50.7 % (20.5-51.5); MEAN CORPUSCULAR HEMOGLOBIN 33 pg (27-31); MEAN CORPUSCULAR HGB CONC 34 % (32-36); MEAN CORPUSCULAR VOLUME 98 fL (79.0-98.0); MONOCYTES # (AUTO) 0.5 K/uL (0.0-1.0); NEUTROPHILS # (AUTO) 1.6 K/uL (1.8-7.7); NEUTROPHILS % (AUTO) 37.5 % (40.0-70.0); PLATELET COUNT (AUTO) 199 K/uL (130-430); RED BLOOD CELL COUNT(AUTO) 3.54 MIL/uL (4.2-6.2); RED CELL DISTRIBUTION WIDTH 14.9 % (9.0-15.0); WHITE BLOOD COUNT (AUTO) 4.2 K/uL (4.8-10.8)
[2021-01-15 20:47] LABS: ANION GAP 12 (5-15); CALCIUM 8.9 mg/dL (8.4-11.0); CHLORIDE 101 mmol/L (98-107); CREATININE 1.07 mg/dL (0.55-1.30); GLUCOSE 141 mg/dL (70-99); POTASSIUM 4.9 mmol/L (3.5-5.1); SODIUM SERUM 137 mmol/L (136-145); UREA NITROGEN, BLOOD 19 mg/dL (8-21)
[2021-01-15 20:56] LABS: ALANINE AMINOTRANSFERASE 13 U/L (12-78); ALBUMIN 3.1 g/dL (3.4-4.8); ASPARTATE AMINOTRANSFERASE 9 U/L (10-37); TOTAL BILIRUBIN 0.4 mg/dL (0.0-1.0)
[2021-01-15 20:59] LABS: INR 0.9 (0.8-1.2); PROTHROMBIN TIME 9.9 SECS (9.5-12.5)
--- NOTE | 2021-01-15 21:00 | NUR ---
Placed in room 4 . Placed on telemetry monitor, blood pressure machine and pulse oximeter. To gown for exam. Side rails up. Report given to reyna chu.
[2021-01-15] MEDS ORDERED: NITROGLYCERIN 0.4 MG TAB.SUBL SL ONE (21:30)
--- NOTE | 2021-01-15 22:05 | NUR ---
UPDATE TO SON, HE WAS AT BEDSIDE, MOTHER INVOLVED,
--- NOTE | 2021-01-15 22:25 | NUR ---
SON TO TRANSPORT HIS SISTER BACK HOME AND IS AWARE OF POSSIBLE DISPOSITIONS
--- NOTE | 2021-01-15 23:03 | NUR ---
calm, alert, resp unlabored, skin warm and dry. sr on monitor no ectopy.
--- NOTE | 2021-01-16 00:01 | NUR ---
RESP UNLABORED, SR ON MONITOR NO ECTOPY, SKIN WARM AND DRY
--- NOTE | 2021-01-16 01:15 | NUR ---
NO CHANGE IN CONDITION, ALERT, DENIES CP/SOB
--- NOTE | 2021-01-16 03:13 | NUR ---
Patient will be admitted to care of SONG. Admitted to TELE unit. Will go to room 132. Belongings list completed. Complete and up to date summary report printed. SBAR report to be given at bedside with opportunity for questions.
[2021-01-16 03:31] VITALS: BP_SYST 144
--- NOTE | 2021-01-16 03:35 | NUR ---
ADMISSION: The patient, JAIME REEDER I, 75 y/o, F admitted by GA ZULETA MD, was given written information regarding hospital policies, unit procedures and contact persons. Valuables were checked and DOCUMENTED.
--- NOTE | 2021-01-16 03:45 | NUR ---
ADMISSION AND PHYSICAL ASSESSMENT NOTES; pt. came in from ER/[facility]. with the chief c/o chest pain and shortness of breath, on room air. O2 sat 98%. pt. awake, alert, oriented to room and use of call light. on fall risk precautions. no IV access on arrival. noted placed on court recording monitor and shows sinus rhythm. noted bilateral lower extremities swollen. noted some chest discomfort, was given Nitrostat from ER. Troponin level normal. call light within reach. pt. room close to nurses station.
--- NOTE | 2021-01-16 04:25 | NUR ---
NOTES: pt. now c/o severe abdominal and chest pain, will call Dr. Crowder.
--- NOTE | 2021-01-16 04:30 | NUR ---
NOTES: IV started by nurse Madan on left forearm gauge # 22, IV lock. MRSA swab sent per routine.
--- NOTE | 2021-01-16 04:30 | NUR ---
PAGED I PAGED DR. ZULETA @[phone] I SPOKE WITH MELY PASCUAL
--- NOTE | 2021-01-16 04:30 | NUR ---
NOTES: asked airplane technician to call Dr. Crowder.
--- NOTE | 2021-01-16 04:52 | NUR ---
PAGED DR. ZULETA SECOND TIME I SPOKE WITH MELY PASCUAL
--- NOTE | 2021-01-16 04:56 | NUR ---
NOTES: pt. has not responded yet, called again exchange for the 2nd call.
--- NOTE | 2021-01-16 04:56 | NUR ---
CONSULT: CONSULT CALLED FOR DR. IRELAND I SPOKE WITH MELY PASCUAL REASON FOR CONSULT: CHEST PAIN REQUESTING CONSULT: DR. ZULETA SUPERVISOR CAP AND HAT PRODUCTION PHONE NUMBER: [phone]
--- NOTE | 2021-01-16 05:28 | NUR ---
NOTES: pt. sleeping now, no further complaints. continue to monitor.
--- NOTE | 2021-01-16 06:28 | NUR ---
PAGED DR. SONG DOYLE THE THIRD TIME I SPOKE WITH MELY THIS TIME HE ANSWERED
--- NOTE | 2021-01-16 06:30 | NUR ---
NOTES: called again Dr. Crowder for the third time and return the call and informed about pt. complain with order.
--- NOTE | 2021-01-16 06:41 | NUR ---
Nutrition Update Manuel Scale 15 noted. Pt admitted for Chest pain Diet: [facility] [place] BMI: 25.6 kg/m2 RD to follow per nutrition care standards.
[2021-01-16] MEDS ORDERED: MORPHINE 4 MG INJ. 4 MG/ML VIAL IVP PRN (06:45)
--- NOTE | 2021-01-16 08:00 | NUR ---
Opening Note Patient resting in bed, reported abd pain, notified MD. Alert and resting in bed. Bed in lowest position, bed alarm on, and call light within reach. Explained plan of care and encouraged to call nurse when you pt has to use the restroom.
--- NOTE | 2021-01-16 08:01 | NUR ---
Dr. Hollis rounds assessed patient, will follow up with any new orders.
[2021-01-16] MEDS ORDERED: ACETAMINOPHEN 325 MG TABLET PO PRN ×2 (08:15→08:45)
[2021-01-16] MEDS ORDERED: METOPROLOL SUCCINATE 25 MG TAB.SR.24H (TOPROL XL) PO ONE (09:00)
--- NOTE | 2021-01-16 09:03 | NUR ---
Echocardiogram being done at the bedside at this time, patient is tolerating well, continuing to monitor.
[2021-01-16] MEDS: ATORVASTATIN 10 MG TABLET PO SCH (09:51)
[2021-01-16] MEDS: MORPHINE 2 MG/ML INJ. SYRINGE IVP PRN (09:53)
[2021-01-16 11:51] VITALS: BP_SYST 125
[2021-01-16 12:06] VITALS: BP_SYST 125
--- NOTE | 2021-01-16 12:07 | NUR ---
Gi Consult Called Consultation and GEN Thompson
--- NOTE | 2021-01-16 13:03 | NUR ---
NOTIFIED RN HOOD THAT PT IS OFF MONITOR.
--- NOTE | 2021-01-16 13:05 | NUR ---
Patient off the unit to CT scan at this time. Addendum: 01/16/21 at 1311 by Gabino Serrano RN patient back on the unit, replaced telemetry leads.
--- NOTE | 2021-01-16 13:37 | NUR ---
Paged Dr. Mckinney regarding new consultation & CTAP results, spoke with Val. Addendum: 01/16/21 at 1408 by Gabino Serrano RN Received call back from - orders received.
[2021-01-16] MEDS: DOCUSATE SODIUM 250 MG CAPSULE PO PRN (13:44)
--- NOTE | 2021-01-16 13:56 | NUR ---
Physical therapy at bedside, evaluating the patient, patient tolerating well thus far.
[2021-01-16] MEDS ORDERED: GOLYTELY / COLYTE SOLUTION 4 LITERS PO ONE (14:15)
[2021-01-16 14:41] LABS: LIPASE 94 U/L (73-393)
[2021-01-16] MEDS ORDERED: MINERAL OIL 30 ML UDC PO ONE (15:30)
[2021-01-16] MEDS ORDERED: POLYETHYLENE GLYCOL 3350, 17 GM/ POWD.PACK PO ONE (15:30)
--- NOTE | 2021-01-16 15:58 | NUR ---
Chest pain/Dr. Hollis the patient is complaining of left sided chest pain, the patient states that it was," a little bit," and then the patient rated it 7/10 pain - spoke with Dr. Hollis regarding chest pain - received orders for Tramadol, will follow up.
--- NOTE | 2021-01-16 15:59 | NUR ---
HIGH ALERT NOTE: Called Dr. Hollis back at [phone] identified within the medical roster to verify physician authenticity. Received orders from Tramadol PRN.
[2021-01-16] MEDS ORDERED: traMADol HCL HCL 50 MG TABLET (ULTRAM) PO PRN (16:00)
--- NOTE | 2021-01-16 16:02 | NUR ---
UA collected and sent to lab.
[2021-01-16 16:46] VITALS: BP_SYST 110
--- NOTE | 2021-01-16 16:54 | NUR ---
Rounding Note Patient reported abd pain 1600, got new orders for pain, patient currently sleeping at 1650, will assess and monitor pain when the patient wakes up.
[2021-01-16 17:39] LABS: BILIRUBIN,URINE NEGATIVE (NEGATIVE); BLOOD, URINE NEGATIVE (NEGATIVE); CLARITY/URINE CLEAR (CLEAR); COLOR,URINE YELLOW (YELLOW); GLUCOSE,URINE NEGATIVE (NEGATIVE); KETONES,URINE NEGATIVE (NEGATIVE); LEUKOCYTE ESTERASE ,URINE NEGATIVE (NEGATIVE); NITRITE, URINE NEGATIVE (NEGATIVE); PROTEIN URINE NEGATIVE (NEGATIVE); UROBILINOGEN,URINE 0.2 (0.2-1.0)
--- NOTE | 2021-01-16 18:41 | NUR ---
Closing Note Patient resting at bedside, no report of pain. Patient on RA, IV saline lock, bed in lowest position, call light within reach, and bed alarm on. Encouraged to call when she needs to use the restroom. Encouraged to drink GoLytely. Will endorse care.
--- NOTE | 2021-01-16 19:20 | NUR ---
CHANGE OF SHIFT; endorsed by day shift, no distress. started on po golytely due to fecal impaction. call light at bedside fall risk, bed alarm on. pt. room close to nurses station.
[2021-01-16 19:45] VITALS: BP_SYST 124
[2021-01-16] MEDS: METOPROLOL SUCCINATE 25 MG TAB.SR.24H (TOPROL XL) PO SCH (21:26)
[2021-01-16] MEDS: FAMOTIDINE 20 MG TABLET PO SCH (21:27)
[2021-01-16] MEDS: MINERAL OIL 30 ML UDC PO SCH (21:27)
--- NOTE | 2021-01-16 21:30 | NUR ---
NOTES: pt. sleeping, awakened, did not drink her golytely, oral meds given. pulled up in bed and repositioned.
[2021-01-17] VITALS (7 sets, daily range): BP systolic 108–141
--- NOTE | 2021-01-17 00:01 | NUR ---
NOTES: pt. sleeping at his time.
--- NOTE | 2021-01-17 02:00 | NUR ---
NOTES: condition observed, continue to monitor.
--- NOTE | 2021-01-17 03:45 | NUR ---
NOTES: pt. awakened to drink more of Golytely, vomited after taking another glass., will hold for now. pt. still no bm yet.
--- NOTE | 2021-01-17 05:34 | NUR ---
NOTES: pt. sleeping when checked.. continue to monitor.
--- NOTE | 2021-01-17 06:34 | NUR ---
CLOSING NOTES; pt. sleeping, no distress. IV lock patent. used bedpan earlier and voided, no bm. call light within reach. for further care and assistance. will try to give more of golytely today.
[2021-01-17] MEDS: MINERAL OIL 30 ML UDC PO SCH ×3 (06:43→20:56)
[2021-01-17 06:45] LABS: BASOPHILS % (AUTO) 0.6 % (0.0-2.0); EOSINOPHILS % (AUTO) 0.1 % (0.0-4.0); HEMATOCRIT 37.4 % (36-48); HEMOGLOBIN 12.7 g/dL (12.0-16.0); LYMPHOCYTES # (AUTO) 1.7 K/uL (1.0-5.5); LYMPHOCYTES % (AUTO) 33.1 % (20.5-51.5); MEAN CORPUSCULAR HEMOGLOBIN 33 pg (27-31); MEAN CORPUSCULAR HGB CONC 34 % (32-36); MEAN CORPUSCULAR VOLUME 97 fL (79.0-98.0); MONOCYTES # (AUTO) 0.5 K/uL (0.0-1.0); MONOCYTES % (AUTO) 9.6 % (1.7-9.3); NEUTROPHILS # (AUTO) 2.9 K/uL (1.8-7.7); NEUTROPHILS % (AUTO) 56.6 % (40.0-70.0); PLATELET COUNT (AUTO) 194 K/uL (130-430); RED BLOOD CELL COUNT(AUTO) 3.86 MIL/uL (4.2-6.2); RED CELL DISTRIBUTION WIDTH 14.7 % (9.0-15.0)
[2021-01-17 07:05] LABS: ALANINE AMINOTRANSFERASE 11 U/L (12-78); ANION GAP 12 (5-15); ASPARTATE AMINOTRANSFERASE 10 U/L (10-37); CALCIUM 8.9 mg/dL (8.4-11.0); CHLORIDE 102 mmol/L (98-107); CREATININE 0.85 mg/dL (0.55-1.30); GLUCOSE 125 mg/dL (70-99); POTASSIUM 5.2 mmol/L (3.5-5.1); SODIUM SERUM 137 mmol/L (136-145); TOTAL BILIRUBIN 0.5 mg/dL (0.0-1.0); UREA NITROGEN, BLOOD 15 mg/dL (8-21)
[2021-01-17] MEDS: ATORVASTATIN 10 MG TABLET PO SCH (08:26)
[2021-01-17] MEDS: DOCUSATE SODIUM 250 MG CAPSULE PO PRN (08:26)
[2021-01-17] MEDS: METOPROLOL SUCCINATE 25 MG TAB.SR.24H (TOPROL XL) PO SCH ×2 (08:26→20:56)
[2021-01-17] MEDS: POLYETHYLENE GLYCOL 3350, 17 GM/ POWD.PACK PO SCH (08:26)
--- NOTE | 2021-01-17 18:10 | NUR ---
Note Dr Campbell (GI) came to see pt at 0735am. Stated to insert NGT - but put restraints on bilateral wrists as pt tends to pull out lines. Dr Crowder came to floor at 1040am, and order given for restraints. When RN came to bedside to insert NGT and apply bilateral wrist restraints stated she would drink the Golytely slowly. Pt sipped on Golytely slowly all shift - pt had 2 episodes of emesis of moderate amounts. Gown and bed linens had to be changed. Pt was checked on q1' and PRN all shift for needs and care. Bed in low position and bed alarm on all shift. Pt next to nurses' station for close observation. Pt was given hygiene care throughout the shift for urine incontinence. Pt has been attempting to drink the Golytely all shift. Call light within reach all shift. Pt maintained with safety precautions all shift.
--- NOTE | 2021-01-17 19:15 | NUR ---
change of shift.pt.presents quiescent affect;calm,resting.language barrier extant;occitan.i was apprised that an ng-tube is to be place for the administration of golytely 2/t/fecal impaction/constipation.pt.presents iv access intact.general status stable. respiratory status stable;unlabored@room air.call light/telephone w/in access of the pt.
--- NOTE | 2021-01-17 20:00 | NUR ---
pt.assessed.i have provided a sign board;belarusian characters.pt.has pointed to anxiety,pain,nausea.i have noted:rview [facility]ar med-list pain medication;morphine;2-4mg ivp is ordered.to page r/e medication:nausea,anxiety.pt.assessed for cleanliness.pt.repositioned.call light/telephone placed w/in access of the pt.
--- NOTE | 2021-01-17 20:02 | NUR ---
Alexis Crowder s/w Kylie
[2021-01-17] MEDS ORDERED: ONDANSETRON HCL 4 MG/2 ML VIAL IVP PRN (20:15)
[2021-01-17] MEDS ORDERED: LORazepam 1 MG TABLET PO PRN (20:15)
[2021-01-17] MEDS: MORPHINE 2 MG/ML INJ. SYRINGE IVP PRN (20:54)
[2021-01-17] MEDS: FAMOTIDINE 20 MG TABLET PO SCH (20:55)
--- NOTE | 2021-01-17 21:00 | NUR ---
2100pmedications administered.pt.capable to ingest the po medications w/out difficulty. returned the page.i apprised of the pt's.requests. ordered;ativan:1mg po/prn anxiety:6-hrs.zofran;4mg ivp;nausea;Q-6hrs ivp,i have\ administered morphine;2mg ivp;pain,zofran;4mg ivp nausea.ativan 1mg po;anxiety.call light/telephone placed w/in access of the pt.to assess the efficacy of the pain medication per pain mgx protocol.
--- NOTE | 2021-01-17 22:00 | NUR ---
i have telephoned pt's family:sumanth.elizabeth has assisted via telephone to explain the placement to the ng-tube and its indication. pt.understood.i have placed the ng-tube confirmed placement per cxr.i have initiated the administration of the golytley per 's order. pt.reminded to not touch the ng-tube and the ng-tube placement may be for 1-2 days.per 's assessment.pt.repositioned./call light/telephone placed w/in access of the pt.
--- NOTE | 2021-01-18 | NUR ---
pt.assessed.v/s assessed values wnl.per sign board pt.presents no c/o pain,nausea.ng-tube intact i have administered golytely.pt.assessed for cleanliness.pt.repositioned.call light/telephone placed w/in access of the pt.
[2021-01-18 00:13] VITALS: BP_SYST 106
--- NOTE | 2021-01-18 02:00 | NUR ---
pt.assessed.pt.presents quiescent affect;calm,somnolent.pt.assessed for cleanliness pt.repositioned.per flacc pain mgx pt.absent facial grimaces/body posturing.ng-tube intact i have administered golytely.call light/telephone placed w/in access of the pt.
--- NOTE | 2021-01-18 04:00 | NUR ---
pt.assessed.ng-tube intact.i have administered.golytely.utilizing sign board pt.presents no c/o pain,nausea.pt.assessed for cleanliness.pt.repositioned. call light/telephone placed w/in access of the pt.
[2021-01-18] MEDS: MINERAL OIL 30 ML UDC PO SCH ×3 (05:50→22:00)
--- NOTE | 2021-01-18 06:22 | NUR ---
pt.assessed.per sign board pt. gestured;head no pain,nausea.ng-tube intact.i have administered mineral oil;30ml 0600a dose. i have administered golytely.pt.assessed for cleanliness.no bm manifested.pt.repositioned.call light/telephone placed w/in access of the pt.
--- NOTE | 2021-01-18 07:30 | NUR ---
DR SANCHEZ HERE AND SEEN PT, PT IS ON GOLYTELY, PT HAD NO BM YET.
[2021-01-18] MEDS: POLYETHYLENE GLYCOL 3350, 17 GM/ POWD.PACK PO SCH (09:00)
[2021-01-18] MEDS: METOPROLOL SUCCINATE 25 MG TAB.SR.24H (TOPROL XL) PO SCH ×2 (09:45→21:00)
[2021-01-18] MEDS: ATORVASTATIN 10 MG TABLET PO SCH (09:45)
--- NOTE | 2021-01-18 09:45 | NUR ---
KIKE KISER TO CLEAN UP PT, PT HAD 3X DIARRHEA SINCE THIS AM.
[2021-01-18 10:15] VITALS: BP_SYST 113
[2021-01-18 12:00] VITALS: BP_SYST 104
--- NOTE | 2021-01-18 15:28 | NUR ---
REVIEWED ASSESSMENT BY AKASH BLACKWELL. THIS RN CONCUR WITH HIS ASSESSMENT.
[2021-01-18 16:28] VITALS: BP_SYST 102
--- NOTE | 2021-01-18 17:35 | NUR ---
NURSE NOTE PATIENT FOUND SITTING IN BED, NO COMPLAINTS AT THIS TIME. GAVE PATIENT 300ML OF GOLYTELY VIA NG TUBE. DC NG TUBE PER ORDERS.
--- NOTE | 2021-01-18 19:20 | NUR ---
CLOSING NOTE PATIENT AWAKE,SITTING UP, EATING DINNER WITH ASSISTANCE. PATIENT CURRENTLY EXPRESSES NO PAIN AND NO SIGNS OF DISTRESS NOTED. BED IS IN LOWEST POSITION, RAILS UP, CALL LIGHT AT BEDSIDE AND BED IS LOCKED.SITTER AT BEDSIDE. ALL NEEDS MEET THROUGHOUT SHIFT, WILL ENDORSE TO [employer].
[2021-01-18 20:00] VITALS: BP_SYST 94
[2021-01-18] MEDS: FAMOTIDINE 20 MG TABLET PO SCH (22:00)
[2021-01-19 02:14] VITALS: BP_SYST 92
[2021-01-19] MEDS: MINERAL OIL 30 ML UDC PO SCH ×3 (06:00→22:35)
--- NOTE | 2021-01-19 06:30 | NUR ---
ALL PT'S NEEDS WERE ATTENDED TO THIS SHIFT. WILL ENDORSE TO DAY SHIFT NURSE.
[2021-01-19 08:00] VITALS: BP_SYST 105
[2021-01-19] MEDS: POLYETHYLENE GLYCOL 3350, 17 GM/ POWD.PACK PO SCH (08:59)
[2021-01-19] MEDS: ATORVASTATIN 10 MG TABLET PO SCH (08:59)
[2021-01-19] MEDS: METOPROLOL SUCCINATE 25 MG TAB.SR.24H (TOPROL XL) PO SCH ×2 (09:00→20:13)
--- NOTE | 2021-01-19 09:00 | NUR ---
notes seen by dr mars and dr espinoza and stated pt is cleared to go back to [facility] .
[2021-01-19] MEDS ORDERED: Mineral Oil 30 Ml Po PO (11:55)
[2021-01-19] MEDS ORDERED: POLY17PO4 PO (11:55)
[2021-01-19 12:40] VITALS: BP_SYST 96
[2021-01-19 12:41] VITALS: BP_SYST 90
--- NOTE | 2021-01-19 13:00 | NUR ---
rounds seen by dr cruz covering for dr sun and will d/c patient.
--- NOTE | 2021-01-19 14:40 | NUR ---
ATTENDING MD DR Gerald ARZOLA WAS CALLED, RE: TO INFORM FAMILY'S REQUEST OPTING FOR SNF PLACEMENT INSTEAD OF ASSISTED LIVING FACILITY.
--- NOTE | 2021-01-19 14:48 | NUR ---
Spoke to son, Shahid, he requested SNF placement for his mother at [facility] [address] in [place]. Referral Faxed to the requested facility.
[2021-01-19 16:12] VITALS: BP_SYST 115
--- NOTE | 2021-01-19 16:54 | NUR ---
Patient has [employer] Insurance-they are not contracted w/ [facility] in [place]. [facility] is working on a bed for patient in contracted SNF. The number for [facility] is [phone]. They were given son's number to speak to him. Shahid [phone]. The son is requesting a Bulgarian speaking facility.
--- NOTE | 2021-01-19 18:21 | NUR ---
closing notes still waiting for [facility] to call re pt's snf placement . had bm x4 today as per lorenzo beck .
--- NOTE | 2021-01-19 18:40 | NUR ---
CLOSING NOTE PATIENT AWAKE SITTING IN BED EATING DINNER. NO COMPLAINTS OF PAIN OR DISCOMFORT AND NO DISTRESS NOTED. IV SL PATENT AND IN TACT. CALL LIGHT IN REACH, BED IN LOWEST POSITION AND LOCKED, SIDE RAILS UP AND SITTER IN ROOM. WILL ENDORSE TO POLISH COMPOUNDER.
--- NOTE | 2021-01-19 19:35 | NUR ---
ROUNDS PATIENT RESTING IN BED, VITALS STABLE, NO SIGNS OF ANY PAIN AND DISCOMFORT NOTED. ASSESSMENT DONE AND DOCUEMNTED. SEE FLOWSHEET. NEEDS ATTENDED TO. SAFETY MEASURES IN PLACED. CALL LIGHT PLACED WITHIN REACH.
[2021-01-19 20:00] VITALS: BP_SYST 107
[2021-01-19] MEDS: FAMOTIDINE 20 MG TABLET PO SCH (20:13)
[2021-01-20 00:11] VITALS: BP_SYST 109
--- NOTE | 2021-01-20 00:13 | NUR ---
PATIENT RESTING: Patient resting quietly. No acute distress noted. Vital signs within normal range.
[2021-01-20] MEDS: MINERAL OIL 30 ML UDC PO SCH ×2 (06:00→14:00)
--- NOTE | 2021-01-20 06:55 | NUR ---
CLOSING NOTES PATIENT AWAKE, NO COMPLAINTS AT THIS TIME, ALL NEEDS ATTENDED TO. SAFETY MEASURES MAINTAINED. CALL LIGHT PLACED WITHIN REACH.
--- NOTE | 2021-01-20 07:46 | NUR ---
Opening note Patient is resting in bed, a&Ox 4, no complaint of pain or discomfort, no signs or symptoms of respiratory distress. IV is infusing, no signs or symptoms of infiltration. Educated patient on plan of care, patient verbalized understanding. Bed is in lowest position, call light in reach. Fall and aspiration precautions are in place. Will continue to monitor.
[2021-01-20 08:00] VITALS: BP_SYST 121
[2021-01-20] MEDS: ATORVASTATIN 10 MG TABLET PO SCH (09:03)
[2021-01-20] MEDS: POLYETHYLENE GLYCOL 3350, 17 GM/ POWD.PACK PO SCH (09:03)
[2021-01-20] MEDS: METOPROLOL SUCCINATE 25 MG TAB.SR.24H (TOPROL XL) PO SCH (09:03)
--- NOTE | 2021-01-20 11:49 | NUR ---
Rn note Patient ambulated with PT, unable to complete PT session due to BM.
--- NOTE | 2021-01-20 13:23 | NUR ---
Case mgt: Confirmed Rm#[id number] at [facility] at [address] with Puneet at [facility] and also Amy at [facility]--Per [facility], use [facility], [facility], with auth#[id number]--Y arranged S pharmacy picking tech with [facility] ([employer]) for 1530 today--call report to [facility] at [phone]...[facility] ...I notified son Shahid of transport to [facility] at 1530 and he's agreeable to snf--his#[phone]--Nurse Marcia made aware of transport time--updated notes taken to nursing station--TOMMIE FAITH
--- NOTE | 2021-01-20 13:25 | NUR ---
RN note Spoke with sales representative education courses at [facility], patient will be discharged today. ok with patient being discharged. Informed case management Desire, waiting for bed.
[2021-01-20 13:51] VITALS: BP_SYST 121
--- NOTE | 2021-01-20 13:54 | NUR ---
Dietitian Recommendations * Recommend mechanical soft, CCHO diet w/ Glucerna BID (ONS provides 440 kcal/day, 20 gm protein/day) * Encourage increase PO intakes LP, RD Please refer to Nutrition Assessment for details. Addendum: 01/20/21 at [address] Amended: Links added.
--- NOTE | 2021-01-20 14:02 | NUR ---
RN note Did not administer mineral oil because patient is experiencing loose stools and will be discharged at 1530.
--- NOTE | 2021-01-20 16:50 | NUR ---
D/C Patient Patient given medication reconciliation form and D/C instructions. Report given to Lucy FAITH at [facility]. Exit Care provided. Patient verbalized understanding. MD discussed with patient the results and treatment provided. Ambulatory with steady gait for discharge to home. Patient in stable condition, ID band removed. IV catheter removed, intact and dressing applied, no active bleeding. All belongings sent with patient.
--- NOTE | 2021-01-20 16:52 | NUR ---
PHYSICAL THERAPY CO-SIGN The Physical Therapy Progress Notes documented by [employer] have been reviewed. Reviewed/Co-Signed by: Luzmaria Swenson PT Documentation Done by:SHAWN CHAVIRA PTA PROGRESS ROBERT Addendum: 01/20/21 at 1653 by Luzmaria Swenson PT Amended: Links added.
== END 2021-01-20 17:46 | DRG 389 ==
LOC: SED 19:26 → STU 01-16 02:39
PROVIDERS: ADMIT Internal Medicine Hospice and Palliative Medicine; ATTEND Internal Medicine Hospice and Palliative Medicine
DX: K56.41 Fecal impaction (principal); E44.0 Moderate protein-calorie malnutrition; E11.9 Type 2 diabetes mellitus without complications; F20.9 Schizophrenia, unspecified; F31.9 Bipolar disorder, unspecified; R07.89 Other chest pain; F41.9 Anxiety disorder, unspecified; F22 Delusional disorders; K82.8 Other specified diseases of gallbladder; F02.80 Dementia in other diseases classified elsewhere, unspecified severity, without behavioral disturbance, psychotic disturbance, mood disturbance, and anxiety; G30.9 Alzheimer's disease, unspecified; Z20.822 Contact with and (suspected) exposure to COVID-19; I10 Essential (primary) hypertension; Z86.16 Personal history of COVID-19; Z87.440 Personal history of urinary (tract) infections
CPT/HCPCS: 36415; 71045; 74018; 76376; 76700-TC; 80053; 81003; 83690; 83880; 84484; 85025; 85610-TC; 87081; 93005; 93306; 97116-GP; 97530-GP; 99285; G0378; J2270; J2405